=== PATIENT | male | born 1960 | race Caucasian/White ===

== ENCOUNTER 2021-07-01 03:37 | Emergency (ER) | payer OTHER ==
[~2021-07-01] VITALS: Ht 172.7 cm; Wt 80.7 kg
--- NOTE | 2021-07-01 03:37 | NUR ---
ARRIVED ASYSTOLE. ACLS PROTOCOL INITIATED. REFER TO CODE BLUE SHEET.
--- NOTE | 2021-07-01 03:37 | NUR ---
PT BROUGHT TO BED 10 VIA [facility]
--- NOTE | 2021-07-01 03:55 | NUR ---
TIME OF CALLED AT [address] MACHADO.
--- NOTE | 2021-07-01 04:11 | NUR ---
PD CONTACTED AT THIS TIME. ADVISED THAT SURVEY SUPERINTENDENT WILL CONTACT ER SHORTLY
--- NOTE | 2021-07-01 04:28 | NUR ---
[facility] CONTACTED AT THIS TIME, ADVISED PATIENT WAS A CANDIDATE FOR DONATION AND WILL FOLLOW UP FOR NEXT OF KIN INFORMATION. 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
--- NOTE | 2021-07-01 04:41 | NUR ---
GUARD LIEUTENANT CONTACTED ER AT THIS TIME FOR BASIC INFO, ADVISED HE WILL CALL AGAIN VERY SHORTLY FOR FURTHER INVESIGATION
--- NOTE | 2021-07-01 04:59 | NUR ---
FAMILY ARRIVED. PT AND CHILDREN TAKEN INTO TRIAGE ROOM. FAMILY NOTIFIED OF BY DR. MACHADO AT THIS TIME.
--- NOTE | 2021-07-01 05:06 | NUR ---
PATIENT ARRIVED AT THIS TIME WITH FAMILY. PATIENT FAMILY STATES PT HAS HISTORY OF HEAVY SMOKING AND LUNG TUMORS
--- NOTE | 2021-07-01 05:30 | NUR ---
RETURN CALL FROM ITZEL SANTANA [facility] OFFICE. CALL TRANSFERRED TO PRIMARY RNEVERT.
--- NOTE | 2021-07-01 06:11 | NUR ---
[facility] PROVIDED
--- NOTE | 2021-07-01 06:25 | NUR ---
CALL PLACED TO Jordan COTTRELL PCP OF PT TO NOTIFY TO PT .
--- NOTE | 2021-07-01 07:28 | NUR ---
SPOKE WITH SHRUTHI FROM [facility], [facility]ONERS # [id number] PROVIDED PER REQUEST
--- NOTE | 2021-07-01 07:28 | NUR ---
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
--- NOTE | 2021-07-01 07:32 | NUR ---
BODY RELEASED TO [facility]. PT REMAINS RELEASED WITNESSED/SIGNED BY 2 RNs.
--- NOTE | 2021-07-01 10:13 | NUR ---
SPOKE WITH FAHAD FROM [facility], QUESTIONS ANSWERED REGARDING PATIENT TRANSPORTATION VIA [facility].
== END 2021-07-01 07:32 ==
LOC: MED 03:37
DX: I46.9 Cardiac arrest, cause unspecified (principal); I10 Essential (primary) hypertension
CPT/HCPCS: 31500; 92950; 99291